=== PATIENT | female | born 1935 | race Caucasian/White ===

== ENCOUNTER 2016-09-12 13:15 | Outpatient (RCR) | payer MEDICARE, OTHER ==
[~2016-09-12 13:15] MED LIST: ALEVE 220MG220 MG PO; ATENOLOL25 MG PO; BACTRIM DS 8001 TAB PO; CALCIUM CARBONATE; CLEOCIN HC150 MG/CAP PO; CLOBETASOL PROP0.052 TP; COZAAR 50MG50 MG/TAB PO; ELDERBERRY; FLONASE NASAL S16 GM NS; FOLIC ACID 40400 MCG PO; GAS-X80 MG PO; ICAPS LUTEIN &1 TAB PO; IRON325 M1 PO; LORATADINE10 MG PO; MOTRIN 400400 MG/TAB PO; NORCO 325 MG-51 TAB PO; OCUVITE ADULT 51 SGL PO; OSTEO-BI-FLEX 21 TAB PO; REMERON 15M15 MG/TA1 PO; SALINE 45 ML45 ML NS; TEMOVATE0.05% TP; TENORMIN 2525 MG/TAB PO; TUMS500 MG PO; TYLENOL 500MG500 MG PO; TYLENOL EXTRA500 M1 PO; VITAMIN C500 MG PO; ZESTRIL 10MG10 MG PO; ZOLPIDEM5 MG PO
== END 2016-09-19 | disposition home or self-care (01) ==
LOC: WSST
DX: R49.9 Unspecified voice and resonance disorder (principal)
CPT/HCPCS: G9171-GN; G9172-GN

== ENCOUNTER → 2018-04-11 | Outpatient (CLI) | payer MEDICARE, OTHER | LOC: MC.RAD 11:40 | DX: Z12.31 Encounter for screening mammogram for malignant neoplasm of breast (principal); Z98.82 Breast implant status ==

== ENCOUNTER 2022-10-04 14:11 | Emergency (ER) | payer MEDICARE, OTHER ==
[~2022-10-04] VITALS: Ht 154.9 cm; Wt 51.8 kg
[2022-10-04 14:13] VITALS: TEMP 98.5
[2022-10-04 16:11] VITALS: BP 117/63; PULSE 66
== END 2022-10-04 16:12 | disposition home or self-care (01) ==
LOC: COL.ER 14:11
DX: S09.90XA Unspecified injury of head, initial encounter (principal); S02.2XXA Fracture of nasal bones, initial encounter for closed fracture; S00.03XA Contusion of scalp, initial encounter; I10 Essential (primary) hypertension; Z28.310 Unvaccinated for COVID-19; W05.0XXA Fall from non-moving wheelchair, initial encounter; Y92.129 Unspecified place in nursing home as the place of occurrence of the external cause